=== PATIENT | female | born 1995 | race Caucasian/White ===

== ENCOUNTER 2017-08-03 20:20 | Emergency (ER) | payer OTHER ==
[~2017-08-03] VITALS: Ht 154.9 cm; Wt 83.0 kg
[2017-08-03 20:41] VITALS: Ht 154.9 cm; Wt 83.0 kg
[2017-08-03 21:55] VITALS: BP 119/75
== END 2017-08-03 21:55 | disposition home or self-care (01) ==
LOC: ED 20:20
DX: L29.9 Pruritus, unspecified (principal); Z88.0 Allergy status to penicillin

== ENCOUNTER 2019-06-08 16:07 | Emergency (ER) | payer OTHER ==
[~2019-06-08] VITALS: Ht 154.9 cm; Wt 80.3 kg
[2019-06-08 16:12] VITALS: Ht 154.9 cm; Wt 80.3 kg
[2019-06-08 17:35] LABS: microscopic required? YES; urine erythrocyte 3+ (NEGATIVE)
[2019-06-08 17:42] VITALS: BP 105/70
== END 2019-06-08 17:42 | disposition home or self-care (01) ==
LOC: ED 16:07
PROVIDERS: Emergency Medicine
DX: N76.2 Acute vulvitis (principal); N34.2 Other urethritis; Z88.0 Allergy status to penicillin
CPT/HCPCS: 87491; 87591